=== PATIENT | male | born 1940 | race Caucasian/White ===

== ENCOUNTER 2020-03-12 08:21 | Outpatient (CLI) | payer MEDICARE, SELFPAY ==
--- NOTE | ~2020-03-12 | CT_ITS ---
EXAMINATION: CT abdomen pelvis wo/w con DATE: 03/12/2020 09:13 INDICATION: Gross hematuria TECHNIQUE: Computed tomography (CT) of the abdomen and pelvis was performed without intravenous contr ast. CT of the abdomen and pelvis was then performed with a total of 130 mL Omnipaque 350 intravenous contrast using a double-bolus technique for simultaneous opacification of the renal parenchyma and r enal collecting system. The dose-length product (DLP) was 1291.55 mGy-cm. Automated exposure control and iterative reconstruction technique were employed. COMPARISON: 06/11/2009 FINDINGS: Minimal dependent atelectasis is present in the lung bases. The heart size is normal. A saran cified nodule of the right lower lobe is consistent with old granulomatous disease. The liver, spleen , pancreas, gallbladder, and adrenal glands are normal. There are stones measuring 1.9 cm and 0.8 cm in the urinary bladder. The larger of the stones is mobile. The smaller of the stones is in a fixed p osition near the origin of the prostatic urethra. There is a 4 mm nonobstructing stone of the right k idney lower pole. No stones are identified in the left kidney or the ureters. There is no hydronephro sis or hydroureter. There is a 4.0 cm cyst of the left kidney. Additional small hypoattenuating lesio ns of the kidneys are too small to characterize but likely represent cysts. No suspicious renal or ur othelial lesion is identified. Prostatomegaly and prosthetic calcifications are noted. There is calci fied atherosclerosis of the aorta and many of the other arteries. No pathologically enlarged abdomina l or pelvic lymph nodes are identified. 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 Moderate spon dylosis of the lumbar spine is also noted. IMPRESSION: 1. Two bladder stones, one mobile and one in a fixed position near the origin of the prostatic urethr a. 2. Nonobstructing right nephrolithiasis. Reviewed, dictated and finalized at location A. IMPRESSION: 1. Two bladder stones, one mobile and one in a fixed position near the origin o f the prostatic urethra. 2. Nonobstructing right nephrolithiasis.
--- NOTE | ~2020-03-12 | XR_ITS ---
EXAMINATION: XR abdomen/kub 1V INDICATION: Gross hematuria TECHNIQUE: Supine views of the abdomen were obtained on 2 radiographs. COMPARISON: CT from today FINDINGS: There is a 2.4 cm stone in the bladder. A 7 mm calcification projects in the expected locat ion of the bladder stone position near the prostatic urethra origin on the comparison CT. Multiple ad ditional prosthetic calcifications are identified. The bowel gas pattern is normal. There is moderate lumbar spondylosis. Moderate hip osteoarthritis is also noted. IMPRESSION: 1. Two bladder stones identified corresponding to those seen on the comparison CT. Reviewed, dictated and finalized at location A.
[2020-03-12 08:52] LABS: Estimated Glomerular Filt Rate > 60
== END 2020-03-12 08:22 | disposition home or self-care (01) ==
PROVIDERS: PCP Internal Medicine; Visit Provider Urology
DX: N20.0 Calculus of kidney (principal); N21.0 Calculus in bladder
CPT/HCPCS: 36415; 74018; 74178; Q9967

== ENCOUNTER 2020-03-16 01:33 | Outpatient (CLI) | payer MEDICARE, SELFPAY ==
[2020-03-16 18:23] LABS: SARS-CoV-2 RNA PCR Negative
== END 2020-03-16 01:34 | disposition home or self-care (01) ==
LOC: ANHCOVIDDT 01:34
PROVIDERS: PCP Internal Medicine; Visit Provider Urology
DX: Z01.812 Encounter for preprocedural laboratory examination (principal); Z20.828 Contact with and (suspected) exposure to other viral communicable diseases
CPT/HCPCS: 87635; C9803; U0003

== ENCOUNTER 2020-03-16 13:17 | Outpatient (CLI) | payer MEDICARE, SELFPAY ==
--- NOTE | 2020-03-16 13:18 | ECG_ITS ---
Measurements Intervals [place] Rate: 69 P: 50 ND: 172 QRS: 55 QRSD: 90 T: 14 QT: 363 QTc: 391 Interpretive Statements SINUS RHYTHM EARLY PRECORDIAL R/S TRANSITION BORDERLINE ECG Electronically Signed On 03-16-2020 13:43:19 CDT by Roberto Marcus D.O.
== END 2020-03-16 13:18 | disposition home or self-care (01) ==
LOC: ANHSURGERY 13:18
PROVIDERS: PCP Internal Medicine; Visit Provider Urology
DX: I51.9 Heart disease, unspecified (principal); R94.31 Abnormal electrocardiogram [ECG] [EKG]
CPT/HCPCS: 87635; 93005; C9803; U0003

== ENCOUNTER 2020-03-18 01:01 | Day surgery (SDC) | payer MEDICARE, SELFPAY ==
[2020-03-15 15:39] VITALS: BMI 26.1
[2020-03-18] VITALS (9 sets, daily range): BP systolic 92–134; BP diastolic 66–92; PULSE 62–77; RESP 12–16; TEMP 36.1–36.7; O2SAT 97–100; BMI 26.2
--- NOTE | 2020-03-18 07:22 | WPDHPUPDATE1 ---
History and Physical Update Update Date/Time: 03/18/20 07:22 History and Physical has been reviewed, including an updated exam of the patient. There are NO changes in the patient's condition. Risks, benefits, and alternatives have been discussed and questions answered. Patient agrees to proceed with procedure.
[2020-03-18] MEDS: LACTATED RINGERS 1,000 ML 30 ML IV CONT ×2 (10:14→13:13)
--- NOTE | 2020-03-18 10:49 | SUR.PREOP ---
1045; PT WALKED TO BATHROOM. VOIDED
--- NOTE | 2020-03-18 10:57 | WPDANESEPPF ---
Anes - Initial Pre Proc Eval Procedure: Operation Date: 03/18/20 12:00 Proposed Procedures p Cystoscopy, Extraction Of Bladder Stones - William Cai MD s Holmium Laser Procedure - William Cai MD Date/Time: 03/18/20 10:57 Surgeon: William Cai MD Pre Op Diagnosis: Bladder And Kidney Stones Patient Data Age: 80 Gender: M Height: 5 ft 6 in Weight: 73.8 kg Last Vital Signs Temp 36.1 C L 03/18/20 09:50 Pulse 68 03/18/20 09:50 Resp 16 03/18/20 09:50 BP 92/78 L 03/18/20 09:50 Pulse Ox 97 03/18/20 09:50 Allergies Allergy/AdvReac Type Severity Reaction Status Date / Time clopidogrel Allergy Unknown Rash Verified 03/18/20 09:58 Home Medications Medication Instructions Recorded Confirmed Type aspirin 81 mg tablet,delayed 81 mg PO HS 11/05/19 03/18/20 History release atorvastatin 40 mg tablet 40 mg PO QPM 11/05/19 03/18/20 History calcium carbonate-vitamin D3 600 1 tablet PO BID 11/05/19 03/18/20 History mg-125 unit tablet cholecalciferol (vitamin D3) 1,250 1,250 mcg PO [id number] 11/05/19 03/18/20 History mcg (50,000 unit) tablet finasteride 5 mg tablet 5 mg PO DAILY 11/05/19 03/18/20 History isosorbide mononitrate 30 mg 30 mg PO DAILY 11/05/19 03/18/20 History tablet,extended release 24 hr meclizine 25 mg tablet 25 mg PO PRN PRN 11/05/19 03/18/20 History mecobalamin (vitamin B12) 1,000 1,000 mcg PO DAILY 11/05/19 03/18/20 History mcg chewable tablet metoprolol succinate 25 mg 25 mg PO DAILY 11/05/19 03/18/20 History tablet,extended release 24 hr multivitamin 1 tablet PO DAILY 11/05/19 03/18/20 History nitroglycerin 0.4 mg sublingual 0.4 mg SUBLINGUAL Q5M PRN 11/05/19 03/18/20 History tablet vit C 250 mg-vit E 200 unit-zinc 1 tablet PO BID 11/05/19 03/18/20 History 12.5 mg-copper 1 [id number] tablet Patient hx anesthesia problems: none Family hx anesthesia problems: none PMFSH Past Medical History Medical History Cancer Nose Heart disease High cholesterol Sleep disorder Vertigo Surgical History Surgical History H/O arthroscopy of left knee 1982, 07/30/2009 H/O heart artery stent History of bilateral knee replacement R=09/2018, L=09/2016 History of hand surgery Right wrist/Hand 2013 Left wrist/Hand 2014 History of left knee replacement 09/2016 History of right shoulder replacement 01/2016 History of thumb surgery Left CMC Arthroplasty = 05/29/2014 Right CMC Arthroplasty = 06/27/2013 Trigger finger 3-4 surgeries. [id number]=67/2015 R4th=03/11/2003 LThumb=06/22/2001 RThumb=11/06/2000 Family History Family History Mother Family history of lung cancer, Onset Age: 91 Heart disease Father Family history of coronary artery disease Cancer Heart disease Grandparent Cancer Social History Social History Smoking status: Former smoker Tobacco type: cigars Additional smoking assessment comments: 1 CIGAR PER DAY X 15 YRS QUIT 2014 Alcohol intake: current Drinks per week: 3 Alcohol use details: BEER Living arrangements: with family Additional living arrangements comments: = Davina Gender identity (if verbalized by the patient): Male Spiritual care concerns: No Anes - Eval Final PreProcedure Day of Procedure 03/18/20 10:57 Patient weight: overweight Heart: regular rate and rhythm Lungs: decreased breath sounds Airway: Mallampati scale class II Neurological: alert and oriented Last oral intake: >/= 8 hours ASA classification: III Emergent: no Anesthetic plan: proceed Anesthesia type and monitoring: general LMA and standard monitoring Informed Consent: The patient's anesthetic plan and its attendant risks and benefits were discussed with the patien
[2020-03-18] MEDS: ceFAZolin 2 GM/D5W 50 ML 2 GM/50 ML BAG IVPB (11:01)
--- NOTE | 2020-03-18 12:21 | P.OP_ITS ---
Procedure Note - Detailed Date of procedure: 03/18/20 Pre-op diagnosis: Bladder And Kidney Stones Post-op diagnosis: same Procedure performed: Cystoscopy, laser lithotripsy and extraction large (3-3.5cm and 1cm) bladder stone Description of procedure: The patient is brought to the operative suite where he was prepped and draped in a routine sterile fashion while in the dorsal lithotomy position after the uneventful induction of a general anesthetic. A 21F rigid cystoscope was placed in his bladder. He has no urethral strictures but moderate prostatic hyperplasia. He has a [no/small/moderate/large] median lobe enlargement with an estimated prostatic urethral length of approximately 2.0cm. He has 3.5cm and 1cm bladder calculi. Using a 1000 micron holmium laser fiber laser these stones are fractured into smaller particles. The particles are evacuated through the cystoscope using the Vitals ([email or web address]) evacuator. There is some moderate hematuria determination that procedure and therefore I did place a 18F Walker catheter. The patient was taken to the recovery room having tolerated the procedure well. Anesthesia: GLMA Surgeon: William Cai MD Estimated blood loss (mL): 25 Drains: Yes (18F Walker) Packing: No Pathology: yes (Bladder stones) Complications: No immediate complications Condition: stable Disposition: PACU
== END 2020-03-18 14:00 | disposition home or self-care (01) ==
PROVIDERS: PCP Internal Medicine; Visit Provider Urology
PROC: 0TCB8ZZ Extirpation of Matter from Bladder, Via Natural or Artificial Opening Endoscopic (ICD-10-PCS; CPT 52352; principal; 2020-03-18 12:00)
PROC: (CPT 52318; 2020-03-18 12:00)
DX: N21.0 Calculus in bladder (principal); N40.0 Benign prostatic hyperplasia without lower urinary tract symptoms; R31.0 Gross hematuria
CPT/HCPCS: 52318; 82365; 87635; 88300; 93005; A9270; C9803; J0690; J1100; J2370; J2405; J2704; J3010; J7120; U0003

== ENCOUNTER 2020-03-19 05:45 | Emergency (ER) | payer MEDICARE, SELFPAY ==
[2020-03-19 05:46] VITALS: BP 156/66; PULSE 96; RESP 18; O2SAT 96
--- NOTE | 2020-03-19 06:19 | ED.MALEGU ---
HPI - Male Genitourinary General Chief complaint: Urogenital-Male Stated complaint: can't pee Time Seen by Provider: 03/19/20 05:50 History of Present Illness HPI Narrative: Patient is an 80-year-old male who presents the ER with urinary retention. Patient reports yesterday he had some bladder stones broken up by Dr. Knight. This evening he started having some trouble urinating and by this morning he been unable to urinate and was having pressure in his lower abdomen. No burning urination. No fevers or chills or sweats. He is without nausea or vomiting. This is happened to him previously. Patient is currently taking Bactrim. Related Data Home Medications Medication Instructions Recorded Confirmed aspirin 81 mg tablet,delayed 81 mg PO HS 11/05/19 03/18/20 release atorvastatin 40 mg tablet 40 mg PO QPM 11/05/19 03/18/20 calcium carbonate-vitamin D3 600 1 tablet PO BID 11/05/19 03/18/20 mg-125 unit tablet cholecalciferol (vitamin D3) 1,250 1,250 mcg PO [id number] 11/05/19 03/18/20 mcg (50,000 unit) tablet finasteride 5 mg tablet 5 mg PO DAILY 11/05/19 03/18/20 isosorbide mononitrate 30 mg 30 mg PO DAILY 11/05/19 03/18/20 tablet,extended release 24 hr meclizine 25 mg tablet 25 mg PO PRN PRN 11/05/19 03/18/20 mecobalamin (vitamin B12) 1,000 1,000 mcg PO DAILY 11/05/19 03/18/20 mcg chewable tablet metoprolol succinate 25 mg 25 mg PO DAILY 11/05/19 03/18/20 tablet,extended release 24 hr multivitamin 1 tablet PO DAILY 11/05/19 03/18/20 nitroglycerin 0.4 mg sublingual 0.4 mg SUBLINGUAL Q5M PRN 11/05/19 03/18/20 tablet vit C 250 mg-vit E 200 unit-zinc 1 tablet PO BID 11/05/19 03/18/20 12.5 mg-copper 1 [id number] tablet Allergies Allergy/AdvReac Type Severity Reaction Status Date / Time clopidogrel Allergy Unknown Rash Verified 03/18/20 09:58 Review of Systems Constitutional: Constitutional: Denies chills and Denies fever(s) Gastrointestinal: Gastrointestinal: Reports abdominal pain, Denies nausea and Denies vomiting Genitourinary: Genitourinary: Reports oliguria, Denies dysuria and Denies urinary frequency PMFSH Past Medical History Medical History (Updated 03/19/20 @ 06:21 by Quincy Cartagena MD) BPH (benign prostatic hyperplasia) Cancer Nose Heart disease High cholesterol Sleep disorder Vertigo Surgical History Surgical History H/O arthroscopy of left knee 1982, 07/30/2009 H/O heart artery stent History of bilateral knee replacement R=09/2018, L=09/2016 History of hand surgery Right wrist/Hand 2013 Left wrist/Hand 2014 History of left knee replacement 09/2016 History of right shoulder replacement 01/2016 History of thumb surgery Left CMC Arthroplasty = 05/29/2014 Right CMC Arthroplasty = 06/27/2013 Trigger finger 3-4 surgeries. [id number]=38/2015 R4th=03/11/2003 LThumb=06/22/2001 RThumb=11/06/2000 Social History Social History Smoking status: Former smoker Tobacco type: cigars Additional smoking assessment comments: 1 CIGAR PER DAY X 15 YRS QUIT 2014 Alcohol intake: current Drinks per week: 3 Additional living arrangements comments: = Davina Gender identity (if verbalized by the patient): Male Spiritual care concerns: No Exam Narrative: Exam Narrative: GENERAL: Well-appearing, well-nourished, and in no acute distress. HEAD: Normocephalic, atraumatic. CHEST: Clear to auscultation. No respiratory distress. HEART: Regular rate and rhythm. Normal peripheral pulses. ABDOMEN: Soft, moderate suprapubic tenderness, nondistended. EXTREMITIES: Normal range of motion. No edema. NEURO: Alert and oriented x3. PSYCH: Normal mood and affect. Course Course Emergency Course: Patient feeling much better after having Walker placed. 825 mL of urine output. He will contact his urologist for follow-up and Walker removal. Vital Signs Vital si
[2020-03-19 06:23] LABS: Add Urine Microscopic? YES; Appearance Urine Cloudy (Clear); Bacteria Urine Trace /hpf; Bilirubin Urine Negative (Negative); Blood Urine 3+ (Negative); Glucose Urine UA 1+ mg/dL (Negative); Ketones Urine Negative (Negative); Leukocyte Esterase Ur 1+ LEU/UL (Negative); Mucus Urine Rare /lpf; Nitrate Urine Negative (Negative); Protein Urine 2+ mg/dL (Negative); RBC Urine >75 /hpf (0-2); Specific Grav Ur 1.009 (1.001-1.035); Urobilinogen Urine Negative mg/dL (<2.0); WBC Urine 51-75 /hpf
[2020-03-19 06:25] LABS: Color Urine Amber (Yellow)
--- NOTE | 2020-03-19 07:11 | PC.NURSE ---
Walker catheter changed over to leg bag with care instructions
[2020-03-19 07:12] VITALS: BP 122/75; PULSE 76; RESP 18; O2SAT 97
== END 2020-03-19 07:13 | disposition home or self-care (01) ==
PROVIDERS: Emergency Provider Emergency Medicine; PCP Internal Medicine
DX: N40.1 Benign prostatic hyperplasia with lower urinary tract symptoms (principal); R33.8 Other retention of urine; Z79.82 Long term (current) use of aspirin; E78.00 Pure hypercholesterolemia, unspecified; G47.9 Sleep disorder, unspecified; Z96.653 Presence of artificial knee joint, bilateral; Z96.611 Presence of right artificial shoulder joint; Z87.891 Personal history of nicotine dependence
CPT/HCPCS: 51702; 81001; 87086; 99283

== ENCOUNTER 2022-01-12 14:52 | Outpatient (CLI) | payer MEDICARE, SELFPAY ==
--- NOTE | ~2022-01-12 | CT_ITS ---
EXAMINATION: CT abdomen pelvis wo con DATE: 01/12/2022 15:19 INDICATION: Benign prostatic hypertrophy, painful urination, urinary obstruction TECHNIQUE: Computed tomography (CT) of the abdomen and pelvis was performed without intravenous contr ast. The dose-length product (DLP) was 581.81 mGy-cm. Automated exposure control and iterative recons truction technique were employed. COMPARISON: 03/12/2020 FINDINGS: Minimal dependent atelectasis is present in the lung bases. The heart size is normal. Calci fied coronary artery atherosclerosis is noted. There is mild bilateral gynecomastia. The liver, splee n, pancreas, gallbladder, and adrenal glands are normal. There is a 6 mm stone of the distal right ur eter causing moderate hydroureteronephrosis. A 7 mm stone is also seen at the right ureterovesicular junction. There are two additional stones in the urinary bladder which measure 8 mm and 7 mm. The pro state is enlarged. Cysts of the left kidney measure up to 4 cm. No pathologically enlarged abdominal or pelvic lymph nodes are identified. There is no free intraperitoneal gas or evidence of bowel obstr uction. Colonic diverticulosis is present without evidence of diverticulitis. There is moderate lumba r spondylosis. IMPRESSION: 1. 6 mm stone of the distal right ureter causing moderate hydroureteronephrosis and also 7 mm stone o f the right ureterovesicular junction. 2. Two bladder stones measuring 7 mm and 8 mm. Reviewed, dictated and finalized at location F. IMPRESSION: 1. 6 mm stone of the distal right ureter causing moderate hydroureteronephrosis and also 7 mm stone of the right ureterovesicular junction. 2. Two bladder stones measuring 7 mm and 8 mm.
--- NOTE | ~2022-01-12 | XR_ITS ---
EXAMINATION: XR abdomen/kub 1V INDICATION: Benign prostatic hypertrophy, pelvic pain TECHNIQUE: Supine views of the abdomen were obtained on 2 radiographs. COMPARISON: CT from today FINDINGS: A 5 mm stone is seen at the expected location of the right ureterovesicular junction. The k nown right distal ureteral stone is not well demonstrated. There are two bladder stones. Prostatic ca lcifications are noted. The bowel gas pattern is normal. There is moderate right and mild left hip os teoarthritis. IMPRESSION: 1. Known stone of the right distal ureter not well demonstrated. 2. Stone at the right ureterovesicular junction. 3. Two mobile bladder stones. Reviewed, dictated and finalized at location F.
== END 2022-01-12 14:53 | disposition home or self-care (01) ==
PROVIDERS: PCP Family Medicine; Visit Provider Urology
DX: N40.1 Benign prostatic hyperplasia with lower urinary tract symptoms (principal); N21.0 Calculus in bladder; N20.1 Calculus of ureter
CPT/HCPCS: 74018; 74176

== ENCOUNTER 2022-01-16 12:10 | Outpatient (CLI) | payer MEDICARE, SELFPAY ==
--- NOTE | 2022-01-16 12:33 | ECG_ITS ---
Measurements Intervals [place] Rate: 76 P: 56 NC: 165 QRS: 50 QRSD: 90 T: 5 QT: 359 QTc: 406 Interpretive Statements SINUS RHYTHM NORMAL ELECTROCARDIOGRAM COMPARED TO ECG 03/16/2020 13:52:03 NO SIGNIFICANT CHANGES Electronically Signed On 01-16-2022 15:54:38 CDT by Alec Cantu M.D.
== END 2022-01-16 12:11 | disposition home or self-care (01) ==
LOC: ANHSURGERY 12:13
PROVIDERS: PCP Family Medicine; Visit Provider Urology
DX: N20.1 Calculus of ureter (principal); I10 Essential (primary) hypertension; Z01.818 Encounter for other preprocedural examination
CPT/HCPCS: 87086; 93005

== ENCOUNTER 2022-01-20 16:14 | Observation (INO) | payer MEDICARE, SELFPAY ==
[2022-01-16 10:15] VITALS: BMI 27.5
--- NOTE | 2022-01-16 10:47 | PC.NURSE ---
Report to the Outpatient Waiting Room, entrance under the green pavilion located off [facility], at time __10:00AM on date _01/20/22 . OR Time: __12:00PM . - You and your visitor will be asked a series of questions to screen for COVID 19 for your protection. - Only one visitor is allowed at this time. - The patient visitor is requested to leave or wait in car when not with patient. - A mask is required within the hospital. Patients may have clear liquids (water, carbonated beverages, clear teas, apple juice) until 3 hours prior to surgery with a maximum of 20 ounces. - No food from midnight until time of surgery Take the following medications with a SIP of water the morning of surgery: __CEPHALEXIN, ISOSORBIDE, METOPROLOL, MECLIZINE NEEDED Medications to discontinue per physician HOLD ASPIRIN PER MD-PT CALLING PHYSICIAN CHIEF OF PATHOLOGY TODAY, HOLD VITAMINS/SUPPLEMENTS 3 DAYS PRE-OP- LAST DOSE TODAY Please no make-up, nail portuguese, hairspray, perfume, deodorant, or body powder the day of surgery. No jewelry (including any body piercings) or valuables the day of surgery, leave them at home. Please take a shower or bath the night before, or the morning of, surgery with an antibacterial soap. Wear comfortable, loose fitting clothing. Children are encouraged to wear pajamas. - Jewelry must be removed prior to entering the operating room. Rings and piercings that are not removed may be cut off. - The hospital will not accept responsibility for valuables. - Please leave all valuables, including medications, at home the day of surgery. If you are going home after surgery, a licensed shag truck driver must drive you home. - NO public transportation without another adult. - We recommend that an adult stay with you for 24 hours following discharge. - We also recommend that you do not drive, make important decision, drink alcoholic beverages, or take any drugs that were not prescribed by your health care provider for at least 24 hours after your discharge time. Follow any additional instructions given to you from your surgeon. If you or anyone in your household have experienced Covid symptoms in the past week, please notify your surgeon or the nurse liaison at the phone number below for possible testing. Telephone instructions given to ___PATIENT & WIFE and asked if any additional questions and then verbalized understanding. Patient advised to call surgeon office or pre surgery nurse liaison [phone] if any additional questions.
[2022-01-20] VITALS (18 sets, daily range): BP systolic 100–145; BP diastolic 56–99; PULSE 62–90; RESP 12–21; TEMP 36.1–37.1; O2SAT 95–100
--- NOTE | ~2022-01-20 | XR_ITS ---
XR abdomen/kub 1V 01/20/2022 11:25 Indication: Renal stones. Procedure: KUB Comparison: Comparison to multiple prior studies sequentially, with oldest reviewed study dated 03/12. Findings: Bowel gas pattern is nonobstructive. There is a possible distal right ureteral stone at the sacral level. There are multiple bladder stones. There are prostate calcifications. Severe lumbar sp ondylosis. Nonobstructive bowel gas pattern. Impression: 1: Possible small distal right ureteral stone at the sacral level. 2: Bladder stones. Reviewed, dictated and finalized at location A. Impression: 1: Possible small distal right ureteral stone at the sacral level. 2: Bladder stones.
--- NOTE | ~2022-01-20 | XR_ITS ---
EXAMINATION: XR retrograde pyelo w/stent RT DATE: 01/20/2022 13:34 INDICATION: Right internal ureteral stent placement TECHNIQUE: Fluoroscopic images from a right internal ureteral stent placement are submitted for naty miller 44 seconds of fluoroscopy time. 6 fluoroscopic images. FINDINGS: There is a right double-J internal ureteral stent projecting in expected position, with proximal [place] loop at the level of the renal pelvis and distal loop in the pelvis within the bladder lumen. IMPRESSION: 1. Right internal ureteral stent placement. Please refer to real-time procedural findings for bill ye. Reviewed, dictated and finalized at location A. IMPRESSION: 1. Right internal ureteral stent placement. Please refer to real-time procedu ral findings for details.
--- NOTE | 2022-01-20 11:58 | WPDANESEPPF ---
Anes - Initial Pre Proc Eval Procedure: Operation Date: 01/20/22 13:30 Proposed Procedures p Cystoscopy, Right Ureteroscopy, Right Stone Extraction, Possible Right Retrograde Pyelogram, Possible Right Stent Placement, Possible Holmium Laser Procedure - Billy Finn MD Date/Time: 01/20/22 11:58 Surgeon: Billy Finn MD Pre Op Diagnosis: right ureteral stone Patient Data Age: 81 Gender: M Height: 1.65 m Weight: 75 kg Allergies Allergy/AdvReac Type Severity Reaction Status Date / Time clopidogrel Allergy Unknown Rash Verified 01/20/22 11:56 Home Medications Medication Instructions Recorded Confirmed Type aspirin 81 mg tablet,delayed 81 mg PO QAM 11/05/19 01/16/22 History release (Adult Low Dose Aspirin) atorvastatin 40 mg tablet 40 mg PO QPM 11/05/19 01/16/22 History calcium carbonate-vitamin D3 600 1 tablet PO BID 11/05/19 01/16/22 History mg-125 unit tablet (Calcium) cholecalciferol (vitamin D3) 1,250 1,250 mcg PO [id number] 11/05/19 01/16/22 History mcg (50,000 unit) tablet finasteride 5 mg tablet 5 mg PO QAM 11/05/19 01/16/22 History isosorbide mononitrate 30 mg 30 mg PO HS 11/05/19 01/16/22 History tablet,extended release 24 hr meclizine 25 mg tablet 25 mg PO PRN PRN Dizziness 11/05/19 01/16/22 History mecobalamin (vitamin B12) 1,000 1,000 mcg PO DAILY 11/05/19 01/16/22 History mcg chewable tablet metoprolol succinate 25 mg 25 mg PO QAM 11/05/19 01/16/22 History tablet,extended release 24 hr multivitamin 1 tablet PO DAILY 11/05/19 01/16/22 History nitroglycerin 0.4 mg sublingual 0.4 mg sublingual Q5M PRN Chest 11/05/19 01/16/22 History tablet (Nitrostat) Pain vit C 250 mg-vit E 200 unit-zinc 1 tablet PO BID 11/05/19 01/16/22 History 12.5 mg-copper 1 [id number] tablet (ICaps AREDS2 (copper citrate)) cephalexin 500 mg capsule 1 cap PO QAM 01/16/22 01/16/22 History tamsulosin 0.4 mg capsule 0.4 mg PO HS 01/16/22 01/16/22 History Patient hx anesthesia problems: none Family hx anesthesia problems: none Results Review: All pre-operative results and documents have been reviewed as part of the pre-operative evaluation. [facility] Past Medical History Medical History BPH (benign prostatic hyperplasia) CAD (coronary artery disease) Cancer Nose Heart disease High cholesterol Sleep disorder Vertigo Surgical History Surgical History H/O arthroscopy of left knee 1982, 07/30/2009 H/O heart artery stent History of bilateral knee replacement R=09/2018, L=09/2016 History of hand surgery Right wrist/Hand 2013 Left wrist/Hand 2014 History of left knee replacement 09/2016 History of right shoulder replacement 01/2016 History of thumb surgery Left CMC Arthroplasty = 05/29/2014 Right CMC Arthroplasty = 06/27/2013 Stented coronary artery Trigger finger 3-4 surgeries. I2jp=31/2015 R4th=03/11/2003 LThumb=06/22/2001 RThumb=11/06/2000 Family History Family History Mother Family history of lung cancer, Onset Age: 91 Heart disease Father Family history of coronary artery disease Cancer Heart disease Grandparent Cancer Social History Social History Smoking status: Former smoker Tobacco type: cigars Smoking end date: 01/21/08 Additional smoking assessment comments: 1 CIGAR PER DAY X 15 YRS QUIT 2014 Alcohol intake: current Drinks per week: 3 Alcohol use details: BEER Substance use: never Living arrangements: with family Additional living arrangements comments: = Davina Gender identity (if verbalized by the patient): Male Spiritual care concerns: No Anes - Eval Final PreProcedure Day of Procedure 01/20/22 11:58 Patient weight: overweight Heart: regular rate and
[2022-01-20] MEDS: LACTATED RINGERS 1,000 ML 30 ML IV CONT ×2 (12:05→14:16)
--- NOTE | 2022-01-20 12:24 | WPDHPUPDATE1 ---
History and Physical Update Update Date/Time: 01/20/22 12:24 History and Physical has been reviewed, including an updated exam of the patient. There are NO changes in the patient's condition. Risks, benefits, and alternatives have been discussed and questions answered. Patient agrees to proceed with procedure. Proceed with cystoscopy, right retrograde, right ureteroscopy with stone extraction possible laser
[2022-01-20] MEDS: ceFAZolin 2 GM/D5W 50 ML 2 GM/50 ML BAG IVPB (12:47)
[2022-01-20] MEDS: LIDOCAINE HCL 2% GEL UROJET 10 ML PKG MUCOUS MEM (12:58)
--- NOTE | 2022-01-20 13:32 | W.PM.PROC2 ---
Procedure Note - Detailed Date of Procedure 01/20/22 Pre-op Diagnosis right ureteral stone Post-op Diagnosis Same (Three bladder calculi, prostatic urethral calculi) Procedure Performed Cystoscopy, right retrograde pyelogram, right ureteroscopy with stone extraction, right ureteral stent placement 4.8 [place] contour stent, extraction of 3 bladder calculi, complex Walker catheter placement Surgeon Billy Finn MD Anesthesia General Description of Procedure Patient is taken the operative suite correctly identified. Once anesthesia was obtained was placed in dorsal lithotomy position and prepped and draped usual sterile fashion. Twenty-two Gibraltarian scope inserted in the bladder. There are no urethral strictures. Patient does have somewhat of a sulcus on the right side of his prostate near the apex which has a calcification which is trying to work its way out. Otherwise he has a elevated median bar area. The bladder itself was then inspected. He has 3 fairly good-sized bladder stones measuring anywhere from 6 mm to approximately 8-9 mm. The right ureteral orifice was cannulated with a guidewire. It was dilated with an 8/10 dilator. Rigid ureteral scope was then inserted. Stone was visualized. It was grasped with an escape basket and removed in its entirety. Sent for analysis. Pyelogram was then performed to confirm placement of the stent. 4.8 [place] contour stent was then placed the proximal end coiled in the renal pelvis distal in the bladder. We then retrieved the 3 bladder stones using the escape basket. As we were removing the scope with attempted to retrieve some of this prostatic calculus which was slightly imbedded. He started having some oozing from the prostate. At this point we decided to terminate. An [address] was placed using a catheter guide. This was connected to CBI after placement of 20 cc in the balloon. He is taken recovery stable condition. Will see if we can wean the CBI off in recovery room. He will be discharged home with a Walker catheter and have removed on Sunday in the office. Stent can be removed in approximately 1 week's time Drains Yes Packing No Pathology Yes Complications No immediate complications Condition Stable Disposition PACU
[2022-01-20] MEDS: fentaNYL CITRATE INJ (*CRX) 100 MCG/2 ML VIAL 25 MCG IV PUSH ×4 (13:58→14:10)
--- NOTE | 2022-01-20 15:24 | PM.IMHP ---
H&P: HPI History of Present Illness Date/Time: 01/20/22 15:24 Chief Complaint: Hematuria Narrative: 81-year-old male who is status post cystoscopy with right ureteroscopy and stone extraction as well as extraction 3 bladder calculi. Patient has an enlarged prostate with somewhat of a irregular sulcus along the right floor which had a small calcification. Due to all the manipulation he developed some hematuria and thus we needed to use a catheter guide to place an [address] [address] Walker. This was connected to continuous bladder irrigation. It remained somewhat bloody in the recovery room thus is being admitted for continuous bladder irrigation. Review of Systems Review of Systems: All systems reviewed & are unremarkable except as noted in HPI and below PMFSH Past Medical History Medical History BPH (benign prostatic hyperplasia) CAD (coronary artery disease) Cancer Nose Heart disease High cholesterol Sleep disorder Vertigo Surgical History Surgical History H/O arthroscopy of left knee 1982, 07/30/2009 H/O heart artery stent History of bilateral knee replacement R=09/2018, L=09/2016 History of hand surgery Right wrist/Hand 2013 Left wrist/Hand 2014 History of left knee replacement 09/2016 History of right shoulder replacement 01/2016 History of thumb surgery Left CMC Arthroplasty = 05/29/2014 Right CMC Arthroplasty = 06/27/2013 Stented coronary artery Trigger finger 3-4 surgeries. O4tt=29/2015 R4th=03/11/2003 LThumb=06/22/2001 RThumb=11/06/2000 Family History Family History Mother Family history of lung cancer, Onset Age: 91 Heart disease Father Family history of coronary artery disease Cancer Heart disease Grandparent Cancer Social History Social History Smoking status: Former smoker Tobacco type: cigars Smoking end date: 01/21/08 Additional smoking assessment comments: 1 CIGAR PER DAY X 15 YRS QUIT 2014 Alcohol intake: current Drinks per week: 3 Alcohol use details: BEER Substance use: never Living arrangements: with family Additional living arrangements comments: = [facility] Gender identity (if verbalized by the patient): Male Spiritual care concerns: No Meds Home Medications and Allergies Home Medications Medication Instructions Recorded Confirmed Type aspirin 81 mg tablet,delayed 81 mg PO QAM 11/05/19 01/20/22 History release (Adult Low Dose Aspirin) atorvastatin 40 mg tablet 40 mg PO QPM 11/05/19 01/16/22 History calcium carbonate-vitamin D3 600 1 tablet PO BID 11/05/19 01/16/22 History mg-125 unit tablet (Calcium) cholecalciferol (vitamin D3) 1,250 1,250 mcg PO [id number] 11/05/19 01/16/22 History mcg (50,000 unit) tablet finasteride 5 mg tablet 5 mg PO QAM 11/05/19 01/16/22 History isosorbide mononitrate 30 mg 30 mg PO HS 11/05/19 01/20/22 History tablet,extended release 24 hr meclizine 25 mg tablet 25 mg PO PRN PRN Dizziness 11/05/19 01/16/22 History mecobalamin (vitamin B12) 1,000 1,000 mcg PO DAILY 11/05/19 01/20/22 History mcg chewable tablet metoprolol succinate 25 mg 25 mg PO QAM 11/05/19 01/20/22 History tablet,extended release 24 hr multivitamin 1 tablet PO DAILY 11/05/19 01/20/22 History nitroglycerin 0.4 mg sublingual 0.4 mg sublingual Q5M PRN Chest 11/05/19 01/16/22 History tablet (Nitrostat) Pain vit C 250 mg-vit E 200 unit-zinc 1 tablet PO BID 11/05/19 01/20/22 History 12.5 mg-copper 1 [id number] tablet (ICaps AREDS2 (copper citrate)) cephalexin 500 mg capsule 1 cap PO QAM 01/16/22 01/20/22 History tamsulosin 0.4 mg capsule 0.4 mg PO 01/16/22 01/20/22 History Allergies Allergy/AdvReac Type Severity Reaction Status Date / Time clopidogrel Arun
--- NOTE | 2022-01-20 15:48 | SUR.PHASEI ---
1520- DR GRANDE ASSESSING URINE COLOR- GOING TO KEEP PT OVERNIGHT WITH CBI.
--- NOTE | 2022-01-20 17:00 | ADMGEN ---
This patient, Kike Santos, was admitted to 2 Medical Room 242-. Patient/family oriented to hospital policies and general routines including ID bracelet, bed and alarms, visiting hours, pain management, procedures, bathroom and other care routines, personal items, smoking policy, room service/diet, and visiting hours. Information on how to activate the Rapid Response Team has been discussed. Patient/Family are encouraged to report perceived risks to care and to ask questions if they do not understand what they are told or what they should do.
[2022-01-20] MEDS: DOCUSATE SODIUM 100 MG CAPSULE PO (18:18)
[2022-01-20] MEDS: ATORVASTATIN 40 MG TABLET PO (18:18)
[2022-01-20] MEDS: ISOSORBIDE MONONITRATE 30 MG TAB.ER.24H PO (20:25)
[2022-01-20] MEDS: TAMSULOSIN HCL 0.4 MG CAPSULE PO (20:26)
[2022-01-21 02:57] VITALS: BP 112/64; PULSE 97; RESP 20; TEMP 36.7; O2SAT 100
[2022-01-21] MEDS: ONDANSETRON INJ 4 MG/2 ML VIAL IV PUSH (04:34)
[2022-01-21 05:44] LABS: Hematocrit 38.8 % (42.0-52.0); Hemoglobin 12.8 g/dL (14.0-18.0)
--- NOTE | 2022-01-21 08:11 | WPDANESPN ---
Anes - Prog Note Post-Op Date/Time: 01/21/22 08:11 Vital Signs: Last Vital Signs Temp 36.7 C 01/21/22 02:57 Pulse 97 01/21/22 02:57 Resp 20 01/21/22 02:57 BP 112/64 01/21/22 02:57 Pulse Ox 100 01/21/22 02:57 O2 Del Method Room Air 01/20/22 16:10 O2 Flow Rate 10 01/20/22 13:36 Pain Score (VAS): 10 I/O: Intake & Output 01/20/22 01/21/22 01/21/22 23:59 07:59 15:59 Intake Total 3600 50 Output Total 3100 Balance 500 50 Laboratory Tests 01/21/22 04:38 01/21/22 04:38 Hgb 12.8 L Hct 38.8 L Patient Feedback: Patient satisfied with anesthetic care.
[2022-01-21] MEDS: ASPIRIN 81 MG ENTERIC TABLET PO (08:44)
[2022-01-21] MEDS: CEPHALEXIN 500 MG CAPSULE PO (08:44)
[2022-01-21] MEDS: FINASTERIDE 5 MG TABLET PO (08:45)
[2022-01-21] MEDS: METOPROLOL SUCCINATE EXT REL 25 MG TABCR PO (08:45)
[2022-01-21] MEDS: DOCUSATE SODIUM 100 MG CAPSULE PO (08:45)
[2022-01-21 11:13] VITALS: BP 94/69; PULSE 84; RESP 16; TEMP 36.3; O2SAT 99
--- NOTE | 2022-01-21 11:13 | WPDUROPN2 ---
Progress Note: A&P Assessment and Plan (1) Hematuria: Code(s): R31.9 - Hematuria, unspecified Status: Acute Plan Discussed CBI with nursing, will clamp and ambulate, if still clear place catheter plug and discharge with catheter in place. Follow up with Dr. Finn as scheduled. Subjective Subjective Date/Time Seen: 01/21/22 11:13 Interval history: NAEO, patient reports feeling well, annoyed by catheter, CBI very slow drip with clear urine. Exam Narrative: NAD, A&Ox3 RRR eWOB S/NT/ND CBI on slow drip with clear output. Objective Data Vital Signs Vital Signs: Vital Signs - 24 hr 01/20/22 12:18 01/20/22 13:36 01/20/22 13:45 Temperature 98.8 F 97 F L Pulse Rate 70 70 74 Respiratory Rate 20 21 H 13 Blood Pressure 100/60 131/84 124/75 Pulse Oximetry 98 100 100 Oxygen Delivery Room Air Simple Face Mask Room Air Oxygen Flow Rate 10 01/20/22 14:00 01/20/22 14:15 01/20/22 14:30 Temperature Pulse Rate 68 63 64 Respiratory Rate 14 14 14 Blood Pressure 128/85 117/78 116/76 Pulse Oximetry 100 100 100 Oxygen Delivery Room Air Room Air Room Air Oxygen Flow Rate 01/20/22 14:45 01/20/22 15:00 01/20/22 15:15 Temperature Pulse Rate 64 62 62 Respiratory Rate 14 12 12 Blood Pressure 116/87 120/73 114/75 Pulse Oximetry 100 97 98 Oxygen Delivery Room Air Room Air Room Air Oxygen Flow Rate 01/20/22 15:30 01/20/22 15:45 01/20/22 16:00 Temperature 97.9 F Pulse Rate 63 64 67 Respiratory Rate 12 12 14 Blood Pressure 103/72 109/70 110/77 Pulse Oximetry 97 99 99 Oxygen Delivery Room Air Room Air Room Air Oxygen Flow Rate 01/20/22 16:10 01/20/22 17:00 01/20/22 17:45 Temperature 97.4 F L 97.9 F Pulse Rate 68 73 72 Respiratory Rate 14 16 16 Blood Pressure 119/73 115/65 111/82 Pulse Oximetry 95 100 98 Oxygen Delivery Room Air Oxygen Flow Rate 01/20/22 18:36 01/20/22 19:52 01/20/22 23:52 Temperature 98.3 F 98.1 F 98 F Pulse Rate 82 90 82 Respiratory Rate 16 20 20 Blood Pressure 120/99 H 145/68 H 108/56 L Pulse Oximetry 100 99 99 Oxygen Delivery Oxygen Flow Rate 01/21/22 02:57 Temperature 98.1 F Pulse Rate 97 Respiratory Rate 20 Blood Pressure 112/64 Pulse Oximetry 100 Oxygen Delivery Oxygen Flow Rate Intake/Output Intake/Output: Intake & Output 01/18/22 01/19/22 01/20/22 01/21/22 23:59 23:59 23:59 23:59 Intake Total 6750 290 Output Total 7300 Balance -550 290 Meds/Results Medications: Active Medications Generic Name Dose Route Start Last Admin Trade Name Freq PRN Reason Stop Dose Admin Hydrocodone Bitart/Acetaminophen 1 tab 01/20/22 16:14 Hydrocodone/Acetaminophen (*Crx) 5-325 Mg Tablet PO Q4H PRN Pain Rated 1-6 Aspirin 81 mg 01/21/22 09:00 01/21/22 08:44 Aspirin 81 Mg Enteric Tablet PO 81 mg QAM BRADY Administration Atorvastatin Calcium 40 mg 01/20/22 18:00 01/20/22 18:18 Atorvastatin 40 Mg Tablet PO 40 mg QPM BRADY Administration Cephalexin HCl 500 mg 01/21/22 09:00 01/21/22 08:44 Cephalexin 500 Mg Capsule PO 500 mg QAM BRADY Administration Docusate Sodium 100 mg 01/20/22 17:00 01/21/22 08:45 Docusate Sodium 100 Mg Capsule PO 100 mg BID BRADY Administration Finasteride 5 mg 01/21/22 09:00 01/21/22 08:45 Finasteride 5 Mg Tablet PO 5 mg QAM BRADY Administration Hyoscyamine 0.125 mg 01/20/22 16:14 Hyoscyamine Sulfate 0.125 Mg Tablet SUBLINGUAL Q6H PRN Bladder Spasm Dextrose/Lactated Ringer's 1,000 mls @ 125 mls/hr 01/20/22 16:14 01/21/22 08:47 Dextrose 5%/Lactated Ringers IV CONT Not Given .Q8H BRADY Isosorbide Mononitrate 30 mg 01/20/22 21:00 01/20/22 20:25 Isosorbide Mononitrate 30 Mg Tab.Er.24h PO 30 mg HS BRADY Administration Meclizine HCl 25 mg 01/20/22 16:14 Meclizine Hcl 25 Mg Tablet PO PRN PRN Dizziness Metoprolol Succinate 25 mg 01/21/22 09:00 01/21/22 08:45 Metoprolol Succin
== END 2022-01-21 14:30 | disposition home or self-care (01) ==
LOC: ANH2MED 16:30
PROVIDERS: Admitting Provider Urology; PCP Family Medicine; Visit Provider Urology
PROC: (CPT 52352; principal; 2022-01-20 13:30)
DX: N21.0 Calculus in bladder (principal); N20.1 Calculus of ureter; N42.0 Calculus of prostate; N40.1 Benign prostatic hyperplasia with lower urinary tract symptoms; R39.12 Poor urinary stream; I25.10 Atherosclerotic heart disease of native coronary artery without angina pectoris; E78.00 Pure hypercholesterolemia, unspecified; Z95.5 Presence of coronary angioplasty implant and graft; Z87.891 Personal history of nicotine dependence; Z79.82 Long term (current) use of aspirin
CPT/HCPCS: 52352; 52332; 36415; 74018; 74420; 82365; 85014; 85018; 87086; 88300; 93005; A9270; C1769; C2617; G0378; J0690; J1100; J2405; J2704; J3010; J7120

== ENCOUNTER 2022-09-13 10:29 | Emergency (ER) | payer MEDICARE, SELFPAY ==
[2022-09-13 10:33] VITALS: BP 104/74; PULSE 80; RESP 14; TEMP 36.7; O2SAT 98
--- NOTE | 2022-09-13 10:46 | ED.MALEGU ---
HPI - Male Genitourinary General Chief complaint: Urogenital-Male Stated complaint: cant urinate Time Seen by Provider: 09/13/22 10:46 Source: patient and family Mode of arrival: ambulatory Limitations: no limitations History of Present Illness HPI Narrative: Patient is an 82-year-old male with a history of urinary retention, hypertension, hyperlipidemia, presenting to the emergency department for evaluation of difficulty with urination. Patient states he was experiencing some urinary hesitancy this morning which is not abnormal for him, but then became unable to urinate currently after breakfast. Patient reports mild suprapubic pain and a fullness type sensation. He denies flank pain. No colicky pain. No penile or testicular pain. Patient denies any dysuria or hematuria. He denies fever or chills. No nausea or vomiting. Related Data Home Medications Medication Instructions Recorded Confirmed aspirin 81 mg tablet,delayed 81 mg PO QAM 11/05/19 06/07/22 release (Adult Low Dose Aspirin) atorvastatin 40 mg tablet 40 mg PO QPM 11/05/19 06/07/22 calcium carbonate-vitamin D3 600 1 tablet PO BID 11/05/19 06/07/22 mg-125 unit tablet (Calcium) cholecalciferol (vitamin D3) 1,250 1,250 mcg PO [id number] 11/05/19 06/07/22 mcg (50,000 unit) tablet finasteride 5 mg tablet 5 mg PO QAM 11/05/19 06/07/22 isosorbide mononitrate 30 mg 30 mg PO HS 11/05/19 06/07/22 tablet,extended release 24 hr meclizine 25 mg tablet 25 mg PO PRN PRN Dizziness 11/05/19 06/07/22 mecobalamin (vitamin B12) 1,000 1,000 mcg PO DAILY 11/05/19 06/07/22 mcg chewable tablet metoprolol succinate 25 mg 25 mg PO QAM 11/05/19 06/07/22 tablet,extended release 24 hr multivitamin 1 tablet PO DAILY 11/05/19 06/07/22 nitroglycerin 0.4 mg sublingual 0.4 mg sublingual Q5M PRN Chest 11/05/19 06/07/22 tablet (Nitrostat) Pain vit C 250 mg-vit E 200 unit-zinc 1 tablet PO BID 11/05/19 06/07/22 12.5 mg-copper 1 [id number] tablet (ICaps AREDS2 (copper citrate)) tamsulosin 0.4 mg capsule 0.4 mg PO HS 01/16/22 06/07/22 Allergies Allergy/AdvReac Type Severity Reaction Status Date / Time clopidogrel Allergy Unknown Rash Verified 06/07/22 15:15 Review of Systems Review of Systems: CONSTITUTIONAL: Denies fever, chills, or sweats. ENT: Denies rhinorrhea, congestion, sore throat, or otalgia. CARDIOVASCULAR: Denies chest pain, palpitations, or edema. RESPIRATORY: Denies cough or dyspnea. GASTROINTESTINAL: Reports mild suprapubic distention, denies nausea or vomiting, denies diarrhea or flank pain GENITOURINARY: Denies dysuria or hematuria. SKIN: Denies rash or itching. MUSCULOSKELETAL: Denies back pain, joint pain, or myalgia. [facility] Past Medical History Medical History BPH (benign prostatic hyperplasia) CAD (coronary artery disease) Cancer Nose Heart disease High cholesterol Sleep disorder Vertigo Surgical History Surgical History H/O arthroscopy of left knee 1982, 07/30/2009 H/O heart artery stent History of bilateral knee replacement R=09/2018, L=09/2016 History of hand surgery Right wrist/Hand 2013 Left wrist/Hand 2014 History of left knee replacement 09/2016 History of right shoulder replacement 01/2016 History of thumb surgery Left CMC Arthroplasty = 05/29/2014 Right CMC Arthroplasty = 06/27/2013 Stented coronary artery Trigger finger 3-4 surgeries. R0kn=02/2015 R4th=03/11/2003 LThumb=06/22/2001 RThumb=11/06/2000 Family History Family History Mother Family history of lung cancer, Onset Age: 91 Heart disease Father Family history of coronary artery disease Cancer Heart disease Grandparent Cancer Social History Social History Smoking status: Former smoker Tobacco type: pipe and cigars
[2022-09-13 11:26] LABS: Appearance Urine Slightly Cloudy (Clear); Bilirubin Urine Negative (Negative); Blood Urine 3+ (Negative); Color Urine Light Yellow (Yellow); Glucose Urine UA Negative (Negative); Ketones Urine Negative (Negative); Leukocyte Esterase Ur 3+ LEU/UL (Negative); Nitrate Urine Negative (Negative); Protein Urine Trace mg/dL (Negative); Urobilinogen Urine 0.2 mg/dL (<2.0)
[2022-09-13 11:30] LABS: Basophils Absolute Auto 0.1 K/mm3 (0.0-0.1); Eosinophils Absolute Auto 0.1 K/mm3 (0-0.3); Eosinophils Percent Auto 1.7 % (0-4.4); Hematocrit 42.1 % (42.0-52.0); Hemoglobin 14.2 g/dL (14.0-18.0); Immature Granulocyte Absolute 0.03 K/mm3 (0.00-0.031); Immature Granulocyte Percent A 0.4 % (0-0.5); Lymphocytes Absolute Auto 1.94 K/mm3 (0.9-3.2); Lymphocytes Percent Auto 27.4 % (18.3-44.2); Mean Corpuscular HGB Conc 33.7 g/dl (32-36); Mean Corpuscular Hemoglobin 32.9 pg (26-34); Mean Corpuscular Volume 97.5 fl (80-100); Mean Platelet Volume 9.8 fl (7.4-10.4); Monocytes Absolute Auto 0.8 K/mm3 (0.1-0.6); Monocytes Percent Auto 11.3 % (2.6-8.5); Neutrophils Absolute Auto 4.1 K/mm3 (1.3-6.7); Neutrophils Percent Auto 58.2 % (45.5-73.1); Platelet Count Result 205 k/mm3 (150-375); Red Blood Count 4.32 M/mm3 (4.6-6.20); Red Cell Distribution Width 12.9 % (11.5-14.5); White Blood Count 7.1 K/mm3 (4.5-10.0)
[2022-09-13 11:44] LABS: Mucus Urine Rare /lpf; WBC Urine 21-30 /hpf
[2022-09-13 11:45] LABS: Add Urine Microscopic? YES
[2022-09-13 11:50] LABS: Anion Gap 4 mmol/L (8-16); Blood Urea Nitrogen 16 mg/dL (9-20); Calcium 8.7 mg/dL (8.4-10.2); Carbon Dioxide 27 mmol/L (22-30); Chloride 104 mmol/L (98-107); Estimated CRCL calculation 49 ml/min; Estimated Glomerular Filt Rate > 60; Glucose 109 mg/dL (65-110); Potassium 3.9 mmol/L (3.4-5.0); Sodium 135 mmol/L (137-145)
[2022-09-13 13:13] VITALS: BP 120/68; PULSE 72; RESP 14; O2SAT 98
== END 2022-09-13 13:14 | disposition home or self-care (01) ==
PROVIDERS: Emergency Provider Emergency Medicine; PCP Family Medicine
DX: R33.9 Retention of urine, unspecified (principal); R82.998 Other abnormal findings in urine; I25.10 Atherosclerotic heart disease of native coronary artery without angina pectoris
CPT/HCPCS: 36415; 51702; 80048; 81001; 85025; 87086; 99283